=== PATIENT | male | born 1970 | race Two or more races ===

== ENCOUNTER → 2025-03-29 | Day surgery (SDC) | payer MEDICAID ==
[2025-03-24 15:12] LABS: Hematocrit 45.3 % (41.0-53.0); Hemoglobin 15.4 g/dL (13.5-17.5); Mean Corpuscular Hemoglobin 28.9 pg (28.0-32.0); Mean Corpuscular Volume 85.4 fL (80.0-100.0); Nucleated Red Blood Cells % 0.1 %
[2025-03-24 15:13] LABS: Urine Protein, UAD TRACE (Negative)
[2025-03-24 15:29] LABS: INR 1.08 (0.9-1.15); Partial Thromboplastin Time 28.1 SEC (24.5-34.5); Prothrombin Time 11.4 sec (9.3-11.8)
[2025-03-24 15:44] LABS: Alanine Aminotransferase 15 U/L (7-40); Albumin 4.6 g/dL (3.2-4.8); Alkaline Phosphatase 47 U/L (46-116); Anion Gap 9 (5-15); BUN/Creatinine Ratio 20.4 (10.0-20.0); Bilirubin, Total 0.5 mg/dL (0.2-1.0); Calcium 9.8 mg/dL (8.7-10.4); Carbon Dioxide 26 mmol/L (20-31); Chloride 106 mmol/L (98-107); Glucose 84 mg/dL (74-106); Potassium 4.3 mmol/L (3.5-5.1); Sodium 141 mmol/L (136-145); Total Protein 7.0 g/dL (5.7-8.2)
[2025-03-24 15:45] LABS: Blood Urea Nitrogen 23 mg/dL (9-23)
[~2025-03-29] VITALS: Ht 182.9 cm; Wt 102.1 kg
[~2025-03-29] MED LIST: ASPI81CH59 PO; HYDROmorphone HCL 2 MG/ML VL/or syr IV PRN; MIDAZOLAM HCL 2MG/2ML 2ml VIAL (1mg/ml) IV PRN; MIDAZOLAM HCL 2MG/2ML 2ml VIAL (1mg/ml) ONE; MORPHINE SULFATE 4 MG/ML SYR/VIAL IV PRN; MULT-1018 OR; NAP500T PO; ONDANSETRON HCL 4 MG/2 ML VIAL IV ONE; ONDANSETRON HCL 4 MG/2 ML VIAL ONE; PROPOFOL 10 MG/ML 20 ML IV ONE; SEMA1INJ SC; fentaNYL CITRATE 100 MCG/2 ML VL ONE; hydrALAZINE HCL 20 MG/ML VL IV PRN
[2025-03-29] MEDS: CIPROFLOXACIN 400MG/200ML 200 ML IV ONE (07:37)
--- NOTE | 2025-03-29 08:52 | DVHNC2 ---
Procedure - OPERATIVE REPORT Pre-op. Diagnosis: BPH with Obstruction Post-op. Diagnosis: Same as pre-op diagnosis Operation: Urolift - Prostate Implant Transurethral resection of prostate gland -median Lobe only Anesthesia: General Indications: Patient suffers from obstructive voiding dysfunction. Treatment options were discussed including ongoing therapy with pharmaceutical such as alpha blocking agents (Flomax/UroXatral/Rapaflow), or Prostate shrinking agents (proscar/Avodart); In-office prostate therapies (TUMT/Indigo Laser/TUNA); or Outpatient procedures such as Green light laser photovaporization/Enucleation/TURP) as well urolift. Corresponding advantages and disadvantages were also discussed. Questions were addressed. Complication include but not limited to infection, bleeding, damage to the surrounding structures, ejaculatory dysfunction, erectile dysfunction, need for secondary procedures were discussed. Informed consent was obtained. Patient has symptomatic BPH with LUTs and bladder outlet obstruction. Details of Procedure: Patient was brought to the operating room After administration of anesthesia, he was positioned in the lithotomy position. His Genitalia were prepped and draped in standard surgical and sterile fashion. The 20 F access sheath was introduced into the bladder under direct vision. Bladder was emptied and the Urolift device was introduced. Five implants (3 ATC and 2 regular) were permanently placed at the 10 a& 2 O'clock positions near the bladder neck and apical tissue to lift the kissing lateral lobes out of the way and to create a channel and the urethral bladder neck opening. The implants were delivered through a needle that comes out of the Urolift delivery device and into the prostate. Afterwards, it was noted that the median bar has raised and still contributed to obstruction; therefore it was decided to resect the median bar to improve the channel as adjuvant therapy The 26F resectoscope sheath is introduced into the bladder under direct vision. Using the Olympus monopolar resecting element and NS irrigation, prostate gland median lobe was resected in systematic fashion using the standard cautery settings from the bladder neck to verumontanum, taking care not to injure the external sphincter. The ureteric orifices are noted and avoided of any thermal injury. [address] M[address] catheter is placed for postoperative irrigation and drainage of bladder. Patient tolerated the procedure well. He was awaken and taken to RR in stable condition. All instrument counts were correct at the end of the procedure. Specimens: The prostatic tissue specimens are sent to pathology for evaluation. Complications: None Findings: EBL: < 50ml CARLA JARA MD Mar 29, 2025 08:52
--- NOTE | 2025-03-29 08:53 | DVHDS2 ---
New Physician D'charge PN Admitting Diagnosis Admitting Diagnosis BPH Discharge Diagnosis Same Operations or Procedures UroLift prostate implants with TUR median lobe prostate Reason(s) For Hospitalization Surgery Treatment Plan Discharge Condition of Discharge Good Disposition Home Discharge Instructions Diet: Regular Activity: Light activity Activity comment: Mtz catheter management Medications: Given Follow Up Care Follow Up/Referral: Voiding trial on postop day 1. In Urology Clinic Discharge Statement: "Patient was advised to return to the ER or call 911 if any headaches, dizziness, shortness of breath, chest pain, abdominal pain, bleeding, fevers, or worsening of medical condition. Patient was counseled about treatment plan, medications, possible side effects, patientverbalized understanding. All questions were answered to the best of my ability. This discharge took greater then 30 minutes in planning, reviewing documentation, counseling the patient, and discussing with other team members." CARLA JARA MD Mar 29, 2025 08:53
[2025-03-29 09:00] VITALS: PULSE 85; RESP 16; O2SAT 97
[2025-03-29 10:05] VITALS: BP 135/85; PULSE 77; RESP 13; O2SAT 98
== END | disposition home or self-care (01) ==
LOC: SUR 06:09
PROVIDERS: ATTEND Urology
DX: N40.1 Benign prostatic hyperplasia with lower urinary tract symptoms (principal); N13.8 Other obstructive and reflux uropathy; I10 Essential (primary) hypertension; Z79.82 Long term (current) use of aspirin; Z79.899 Other long term (current) drug therapy; Z90.89 Acquired absence of other organs; Z98.890 Other specified postprocedural states
CPT/HCPCS: 36415; 52441; 52442; 52601; 80053; 81001; 85025; 85610; 85730; 87086; 88307; 88342; A4315; C1769; J0744; J1100; J2250; J2405; J2704; J3010; L8699

== ENCOUNTER 2025-06-23 15:08 | Emergency (ER) | payer MEDICAID, OTHER ==
[~2025-06-23] VITALS: Ht 185.4 cm; Wt 104.0 kg
[~2025-06-23 15:08] MED LIST changes: -HYDROmorphone HCL 2 MG/ML VL/or syr IV PRN; -MIDAZOLAM HCL 2MG/2ML 2ml VIAL (1mg/ml) IV PRN; -MIDAZOLAM HCL 2MG/2ML 2ml VIAL (1mg/ml) ONE; -MORPHINE SULFATE 4 MG/ML SYR/VIAL IV PRN; -ONDANSETRON HCL 4 MG/2 ML VIAL IV ONE; -ONDANSETRON HCL 4 MG/2 ML VIAL ONE; -PROPOFOL 10 MG/ML 20 ML IV ONE; -fentaNYL CITRATE 100 MCG/2 ML VL ONE; -hydrALAZINE HCL 20 MG/ML VL IV PRN
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
[2025-06-23 16:58] VITALS: BP 133/98; PULSE 104; RESP 18; TEMP 98.5; O2SAT 95
[2025-06-23] MEDS ORDERED: ACET-1304 PO (16:58)
== END 2025-06-23 17:02 | disposition home or self-care (01) ==
LOC: ER 15:08
DX: S40.021A Contusion of right upper arm, initial encounter (principal); S20.212A Contusion of left front wall of thorax, initial encounter; Z79.82 Long term (current) use of aspirin; Z79.899 Other long term (current) drug therapy; V89.2XXA Person injured in unspecified motor-vehicle accident, traffic, initial encounter; Y93.89 Activity, other specified; Y92.488 Other paved roadways as the place of occurrence of the external cause; Y99.8 Other external cause status
CPT/HCPCS: 71046; 93971